=== PATIENT | male | born 1960 | race Caucasian/White ===

== ENCOUNTER 2018-05-08 12:55 | Day surgery (SDC) | payer OTHER ==
[~2018-05-08] VITALS: Ht 182.9 cm; Wt 106.3 kg
[~2018-05-08 12:55] MED LIST: ALLO300 PO; AMLO5 PO; ASPI325 PO; ENAL10 PO; FISH OIL 1,0001 EACH PO; FISH1000 PO; GEMF600 PO; SIMV40 PO
== END 2018-05-08 15:22 | disposition home or self-care (01) ==
LOC: ORSCSDS 12:55
PROVIDERS: Internal Medicine Gastroenterology
PROC: 0DBM8ZX Excision of Descending Colon, Via Natural or Artificial Opening Endoscopic, Diagnostic (ICD-10-PCS; principal; 2018-05-08 14:15)
PROC: 0DBL8ZX Excision of Transverse Colon, Via Natural or Artificial Opening Endoscopic, Diagnostic (ICD-10-PCS; principal; 2018-05-08 14:15)
DX: Z86.010 Personal history of colon polyps (principal); D12.3 Benign neoplasm of transverse colon; D12.4 Benign neoplasm of descending colon; K57.30 Diverticulosis of large intestine without perforation or abscess without bleeding; I10 Essential (primary) hypertension; E78.1 Pure hyperglyceridemia; E78.5 Hyperlipidemia, unspecified; E88.81 Metabolic syndrome and other insulin resistance; F17.210 Nicotine dependence, cigarettes, uncomplicated; Z79.899 Other long term (current) drug therapy; Z79.82 Long term (current) use of aspirin; K64.8 Other hemorrhoids
CPT/HCPCS: 88305; J2250; J7120

== ENCOUNTER → 2019-01-23 | Outpatient (CLI) | payer OTHER | LOC: LAB SHORT 10:26 → LAB EV 10:26 | DX: S81.801A Unspecified open wound, right lower leg, initial encounter (principal) | CPT/HCPCS: 87070; 87205 ==

== ENCOUNTER 2021-05-11 08:26 | Day surgery (SDC) | payer OTHER ==
[~2021-05-11] VITALS: Ht 182.9 cm; Wt 98.2 kg
[~2021-05-11 08:26] MED LIST changes: +CENTRUM SILVER1 EAC2 PO; +CO Q10100 MG PO; +Enalapril Malea20 MG PO; +ROSU5 PO; +TERB250 PO; +Tobramycin-Dexam5 ML BOTHEYES
== END 2021-05-11 10:13 | disposition home or self-care (01) ==
LOC: ORSCSDS 08:26
PROVIDERS: Internal Medicine Gastroenterology
PROC: 0DBH8ZX Excision of Cecum, Via Natural or Artificial Opening Endoscopic, Diagnostic (ICD-10-PCS; principal; 2021-05-11 09:45)
PROC: 0DBL8ZX Excision of Transverse Colon, Via Natural or Artificial Opening Endoscopic, Diagnostic (ICD-10-PCS; principal; 2021-05-11 09:45)
DX: Z12.11 Encounter for screening for malignant neoplasm of colon (principal); Z86.010 Personal history of colon polyps; D12.0 Benign neoplasm of cecum; D12.3 Benign neoplasm of transverse colon; K57.30 Diverticulosis of large intestine without perforation or abscess without bleeding; E78.5 Hyperlipidemia, unspecified; K64.8 Other hemorrhoids; Z79.82 Long term (current) use of aspirin; Z79.899 Other long term (current) drug therapy
CPT/HCPCS: 88305; J2704; J7120

== ENCOUNTER 2024-01-23 12:10 | Inpatient (IN) | payer OTHER, MEDICARE ==
[~2024-01-23] VITALS: Ht 180.3 cm; Wt 99.8 kg
[~2024-01-23 12:10] MED LIST changes: +ALBU90OI INH; +ALDACTONE100 MG PO; +ALLO100 PO; -ALLO300 PO; +AMOCLA875 PO; +AZIT250 PO; +BUME2 PO; +CHROMIUM400 MCG PO; +DILT60 PO; +ELIQUIS5 M2 PO; +FOLI1 PO; +FURO20 PO; +METO50ER PO; +MIDO5 PO; +POTASSIUM CITR10 ME2 PO; +SODBIC650 PO; +VANCOCIN HCL125 MG PO; +VISBIOME 112.51 EACH PO
[2024-01-23 13:02] LABS: BASOPHILS ABSOLUTE AUTO 0.04 K/mm3 (0.00-0.23); BASOPHILS PERCENT AUTO 0 % (0-2); EOSINOPHILS ABSOLUTE AUTO 0.06 K/mm3 (0.00-0.68); EOSINOPHILS PERCENT AUTO 1 % (0-6); Hematocrit 36.9 % (37.0-53.0); Hemoglobin 12.9 g/dL (13.5-17.5); IMMATURE GRAN ABSOLUTE AUTO 0.14 K/mm3 (0.00-0.10); IMMATURE GRAN PERCENT AUTO 1 % (0-1); LYMPHOCYTES ABSOLUTE AUTO 1.59 K/mm3 (0.84-5.20); LYMPHOCYTES PERCENT AUTO 12 % (21-46); MONOCYTES ABSOLUTE AUTO 0.79 K/mm3 (0.16-1.47); MONOCYTES PERCENT AUTO 6 % (4-13); Mean Corpuscular HGB 33.9 pg (26.0-34.0); Mean Corpuscular Volume 97 fL (80-100); NEUTROPHILS ABSOLUTE AUTO 10.51 K/mm3 (1.96-9.15); NEUTROPHILS PERCENT AUTO 80 % (41-73); NRBC ABSOLUTE 0.02 K/mm3 (0.00-0.02); NRBC Auto 0.2 /100 WBC (0.0-0.2); Platelet Count 343 K/mm3 (150-400); RDW Coefficient Variation 14.6 % (11.7-14.2); RDW Standard Deviation 52.2 fL (35.1-46.3); White Blood Cell Count 13.13 K/mm3 (4.00-11.30)
[2024-01-23 13:45] LABS: Albumin, Blood 2.1 g/dL (3.4-5.0); Albumin/Globulin Ratio 0.7 (0.8-1.8); Bilirubin, Total 0.8 mg/dL (0.1-1.0); Bun/Creatinine Ratio 24.1 (12.0-20.0); Calcium, Blood 9.7 mg/dL (8.5-10.1); Creatinine, Blood 3.57 mg/dL (0.60-1.20); Globulin, Blood 3.1 g/dL (2.2-4.0); Potassium, Blood 5.6 mmol/L (3.5-5.5); Total Protein, Blood 5.2 g/dL (6.4-8.2)
[2024-01-23] MEDS ORDERED: Sodium Zirconium Cyclosilicate 10 GM Packet PO ONE ×2 (14:25→21:25)
[2024-01-23 16:49] LABS: Base Excess Venous -6.4 mmol/L; Bicarbonate Venous 19.5 mmol/L (24.0-30.0); International Normalized Ratio 1.22; PCO2 Venous 37.5 mmHg (38-42); Prothrombin Time Results 12.9 Sec (9.7-11.5); pH Blood Venous 7.33 (7.34-7.37)
[2024-01-23] MEDS ORDERED: OxyCODONE HCL 5 MG TAB PO PRN (16:55)
[2024-01-23 17:21] VITALS: BP 112/67
[2024-01-23] MEDS ORDERED: Albuterol HFA200 ACT/6.7 GM INH INH PRN (19:40)
[2024-01-23 20:37] LABS: Albumin, Blood 2.1 g/dL (3.4-5.0); Anion Gap 18 mmol/L (3-11); Blood Urea Nitrogen 91 mg/dL (8-24); Bun/Creatinine Ratio 23.9 (12.0-20.0); CO2, Blood 18 mmol/L (21-32); Calcium, Blood 9.5 mg/dL (8.5-10.1); Chloride, Blood 93 mmol/L (98-108); Creatinine, Blood 3.81 mg/dL (0.60-1.20); Glomerular Filtration Rate 17 (60-); Glucose, Blood 223 mg/dL (70-99); Phosphorus, Blood 6.4 mg/dL (2.5-4.9); Potassium, Blood 5.4 mmol/L (3.5-5.5); Sodium, Blood 124 mmol/L (136-145)
[2024-01-23 20:40] VITALS: BP 103/71
[2024-01-23] MEDS ORDERED: Polyethylene Glycol 3350 17 gm PO SCH (21:00)
[2024-01-23] MEDS ORDERED: Lactobacil 2-S.Thermo-Bifido 1 1 Cap PO SCH (21:00)
[2024-01-23] MEDS ORDERED: Miconazole Nitrate 2% 85 GM PWD TOP SCH (21:00)
--- NOTE | 2024-01-24 04:46 | NUR ---
SHIFT SUMMARY ADMITTED FOR ABDOMINAL ASCITES. DNR CODE. PLAN IS FOR PARACENTESIS WHEN HE IS OFF OF ELIQUIS FOR 48 HOURS. IV ALBUMIN IS SCEDULED. HE IS A&O X3, ON RA, REGULAR DIET. RENAL CONSULT IS DR. MONTERO. HE DOES LIVE WITH HIS SPOUSE.
[2024-01-24 04:53] VITALS: BP 93/70
[2024-01-24 05:06] LABS: BASOPHILS ABSOLUTE AUTO 0.03 K/mm3 (0.00-0.23); BASOPHILS PERCENT AUTO 0 % (0-2); EOSINOPHILS ABSOLUTE AUTO 0.11 K/mm3 (0.00-0.68); EOSINOPHILS PERCENT AUTO 1 % (0-6); Hematocrit 34.3 % (37.0-53.0); Hemoglobin 11.9 g/dL (13.5-17.5); IMMATURE GRAN ABSOLUTE AUTO 0.15 K/mm3 (0.00-0.10); IMMATURE GRAN PERCENT AUTO 1 % (0-1); LYMPHOCYTES ABSOLUTE AUTO 1.86 K/mm3 (0.84-5.20); LYMPHOCYTES PERCENT AUTO 14 % (21-46); MONOCYTES ABSOLUTE AUTO 1.07 K/mm3 (0.16-1.47); MONOCYTES PERCENT AUTO 8 % (4-13); Mean Corpuscular HGB 33.2 pg (26.0-34.0); Mean Corpuscular HGB Conc 34.7 g/dL (31.5-36.5); Mean Corpuscular Volume 96 fL (80-100); Mean Platelet Volume 10.1 fL (9.1-12.4); NEUTROPHILS ABSOLUTE AUTO 9.71 K/mm3 (1.96-9.15); NEUTROPHILS PERCENT AUTO 75 % (41-73); NRBC ABSOLUTE 0.03 K/mm3 (0.00-0.02); NRBC Auto 0.2 /100 WBC (0.0-0.2); Platelet Count 333 K/mm3 (150-400); RDW Coefficient Variation 14.6 % (11.7-14.2); Red Blood Cell Count 3.58 M/mm3 (4.30-5.90); White Blood Cell Count 12.93 K/mm3 (4.00-11.30)
[2024-01-24 05:19] LABS: International Normalized Ratio 1.17; Prothrombin Time Results 12.4 Sec (9.7-11.5)
[2024-01-24 06:01] LABS: Albumin, Blood 2.1 g/dL (3.4-5.0); Albumin/Globulin Ratio 0.7 (0.8-1.8); Bilirubin, Total 0.8 mg/dL (0.1-1.0); Bun/Creatinine Ratio 22.8 (12.0-20.0); Calcium, Blood 9.5 mg/dL (8.5-10.1); Creatinine, Blood 4.08 mg/dL (0.60-1.20); Globulin, Blood 3.1 g/dL (2.2-4.0); Phosphorus, Blood 6.9 mg/dL (2.5-4.9); Potassium, Blood 5.9 mmol/L (3.5-5.5); Thyroid Stimulating Hormone 1.66 uIU/mL (0.360-4.800); Total Protein, Blood 5.2 g/dL (6.4-8.2); Uric Acid, Blood 6.8 mg/dL (3.5-7.2)
[2024-01-24] MEDS ORDERED: dilTIAZem HCL 60 MG TAB PO SCH (07:30)
[2024-01-24 07:55] VITALS: BP 108/76
[2024-01-24] MEDS ORDERED: Midodrine 5 MG Tab PO SCH (09:00)
[2024-01-24] MEDS ORDERED: Bumetanide 0.25 MG/ML 10ML Vial IV SCH (09:00)
[2024-01-24] MEDS ORDERED: Sodium Bicarbonate 650 MG Tab PO SCH (09:00)
[2024-01-24] MEDS ORDERED: Allopurinol 100 MG Tab PO SCH (09:00)
[2024-01-24] MEDS ORDERED: Sodium Zirconium Cyclosilicate 10 GM Packet PO SCH ×2 (09:00)
[2024-01-24] MEDS ORDERED: Folic Acid 1 MG TAB PO SCH (09:00)
[2024-01-24] MEDS ORDERED: Albumin Human 50 ML IV SCH (09:00)
[2024-01-24 11:56] LABS: Source, Urine Foley catheter
[2024-01-24 12:01] LABS: Appearance, Urine Cloudy (Clear); Bilirubin, Urine Neg (Neg); Blood, Urine 5+ (Neg); Color, Urine Amber (P-Yellow); Glucose Qualitative, Urine Neg (Neg); Ketones, Urine Neg (Neg); Leukocyte Esterase, Urine 3+ (Neg); Nitrite, Urine Neg (Neg); Protein, Urine 2+ (Neg); Urobilinogen, Urine NORM (Normal)
[2024-01-24 12:13] LABS: Bacteria Few /hpf; Red Blood Cells, Urine TNTC /hpf (0-2); Squamous Epithelial Cells Rare /hpf (Few); White Blood Cells, Urine 25-50 /hpf (0-5)
[2024-01-24 15:44] VITALS: BP 111/76
--- NOTE | 2024-01-24 16:09 | NUR ---
Upon receiving a referral for spiritual care, I visited the patient. He talks about his alcohol addiction and the his plan to live alcohol free and he hopes that he is not to late. He talks about his family and that they are his inspiration and his strength. He also finds peace and full on his four crowder [place]. He has no oriental orthodox preference but his "not against any of it." We talk about and dying and his desire to stick around for a while longer. I provide therapeutic listening, gentle travel counselor automobile club and a calming presence. Patient responded well and showed signs of an elevated outlook.
[2024-01-24] MEDS ORDERED: ROSU5 PO (16:11)
--- NOTE | 2024-01-24 18:33 | NUR ---
OREINTED TO ALL, PAZ, WAKES EASILY, MAKES NEEDS KNOWN, WU 16 COUDE PLACED FOR URINE RETENTION PER DR ZULUAGA, URINE YELLOW/TNAG, NPO AT MIDNIGHT FOR PLEUROVAC PLACEMENT, MEDICATED FOR PAIN WITH OXYCODONE, MICONAZOLE POWDER TO SKIN FOLDS. KIDNEY VALUES WORSENING, DR MONTERO CONSULTING WITH PATIENT, PALLIATIVE/COMFORT CARE TO TAKE OVER ONCE PROCEDURE TOMORROW IS FINISHED, REFUSED NICOTINE REPLACMENT PATCHS/GUM, DAILY SMOKER, NOT IMPULSIVE, REPOSITIONS SELF IN BED, CALL LIGHT WITH IN REACH, WILL RELAY TO PM RN
[2024-01-24 19:57] VITALS: BP 122/87
[2024-01-25 04:13] VITALS: BP 105/65
--- NOTE | 2024-01-25 05:02 | NUR ---
SHIFT SUMMARY. PATIENT IS AOX3. PATIENT ADMITTED WITH ABDOMINAL ASCITIES. PATIENT IS ON RA SATTING >92%. PATIENT IS ABLE TO MAKE HIS NEEDS KNOWN. PATIENT NPO AT MIDNIGHT FOR PROCEDURE TODAY AND RENAL ULTRASOUND. DR. MONTERO IS FEEDER WORKER POWER UNIT OPERATOR FOLLOWING KIDNEY FUNCTION. PER REPORT FROM DAY SHIFT-PALLIATIVE CARE TO COME TALK WITH PATIENT AFTER PROCEDURE ON 01/25/24. PATIENT URINE OUTPUT IS POOR. PATIENT IS COOPERATIVE WITH CARE AND ABLE TO MAKE HIS NEEDS KNOWN. PATIENT C/O PAIN; PAIN ASSESSED AND MEDICATED PER EMAR. PATIENTS BED IS LOCKED IN THE LOWEST POSITION WTIH CALL LIGHT IN REACH. CARE IS ONGOING.
[2024-01-25 05:50] LABS: BASOPHILS ABSOLUTE AUTO 0.03 K/mm3 (0.00-0.23); BASOPHILS PERCENT AUTO 0 % (0-2); EOSINOPHILS ABSOLUTE AUTO 0.12 K/mm3 (0.00-0.68); EOSINOPHILS PERCENT AUTO 1 % (0-6); Hematocrit 31.5 % (37.0-53.0); Hemoglobin 11.2 g/dL (13.5-17.5); IMMATURE GRAN ABSOLUTE AUTO 0.14 K/mm3 (0.00-0.10); IMMATURE GRAN PERCENT AUTO 1 % (0-1); LYMPHOCYTES ABSOLUTE AUTO 1.42 K/mm3 (0.84-5.20); LYMPHOCYTES PERCENT AUTO 8 % (21-46); MONOCYTES ABSOLUTE AUTO 1.55 K/mm3 (0.16-1.47); MONOCYTES PERCENT AUTO 9 % (4-13); Mean Corpuscular HGB 33.6 pg (26.0-34.0); Mean Corpuscular HGB Conc 35.6 g/dL (31.5-36.5); Mean Corpuscular Volume 95 fL (80-100); Mean Platelet Volume 10.4 fL (9.1-12.4); NEUTROPHILS ABSOLUTE AUTO 14.74 K/mm3 (1.96-9.15); NEUTROPHILS PERCENT AUTO 82 % (41-73); NRBC ABSOLUTE 0.02 K/mm3 (0.00-0.02); NRBC Auto 0.1 /100 WBC (0.0-0.2); Platelet Count 314 K/mm3 (150-400); RDW Coefficient Variation 14.7 % (11.7-14.2); RDW Standard Deviation 50.5 fL (35.1-46.3); Red Blood Cell Count 3.33 M/mm3 (4.30-5.90)
[2024-01-25 06:32] LABS: Albumin, Blood 2.3 g/dL (3.4-5.0); Albumin/Globulin Ratio 0.8 (0.8-1.8); Bilirubin, Direct 0.4 mg/dL (0.0-0.3); Bilirubin, Indirect 0.3 mg/dL (0.1-0.7); Bilirubin, Total 0.7 mg/dL (0.1-1.0); Bun/Creatinine Ratio 22.3 (12.0-20.0); Calcium, Blood 9.6 mg/dL (8.5-10.1); Creatinine, Blood 4.58 mg/dL (0.60-1.20); Magnesium, Blood 2.2 mg/dL (1.6-2.4); Phosphorus, Blood 7.5 mg/dL (2.5-4.9); Total Protein, Blood 5.3 g/dL (6.4-8.2)
[2024-01-25 06:40] LABS: Potassium, Blood 6.2 mmol/L (3.5-5.5)
[2024-01-25] MEDS ORDERED: Insulin Regular 100 UNIT/ML 10ML Vial SC ONE (07:10)
[2024-01-25] MEDS ORDERED: Sodium Bicarb 8.4% 1 MEQ/ML 50 ML Vial IV ONE ×2 (07:10→13:30)
[2024-01-25] MEDS ORDERED: Dextrose 50% 50 ML Syringe IV ONE (07:10)
[2024-01-25] MEDS ORDERED: Dextrose 5% 250 ML IV ONE (07:20)
[2024-01-25 08:17] VITALS: BP 101/67
[2024-01-25] MEDS ORDERED: Dextrose 50% 50 ML Vial IV ONE ×2 (08:25→13:30)
[2024-01-25 12:04] VITALS: BP 134/121
[2024-01-25 13:00] LABS: Albumin, Blood 2.7 g/dL (3.4-5.0); Anion Gap 14 mmol/L (3-11); Blood Urea Nitrogen 103 mg/dL (8-24); Bun/Creatinine Ratio 21.6 (12.0-20.0); CO2, Blood 25 mmol/L (21-32); Calcium, Blood 9.7 mg/dL (8.5-10.1); Chloride, Blood 91 mmol/L (98-108); Creatinine, Blood 4.76 mg/dL (0.60-1.20); Glomerular Filtration Rate 13 (60-); Glucose, Blood 134 mg/dL (70-99); Phosphorus, Blood 7.9 mg/dL (2.5-4.9); Potassium, Blood 6.1 mmol/L (3.5-5.5); Sodium, Blood 124 mmol/L (136-145)
[2024-01-25] MEDS ORDERED: Insulin Regular 100 Unit/ML 1ML Dose IV ONE ×2 (13:30→13:45)
[2024-01-25 14:20] VITALS: BP 88/66
[2024-01-25 16:28] VITALS: BP 102/67
--- NOTE | 2024-01-25 17:15 | NUR ---
SUMMARY- PT A/O X3, FORGETFUL, GEN WEAKNESS. CURRTNELY ON BED REST, ROUTINE TURNS. PLAN FOR PLEUR-X DRAIN PLACEMENT TOMORROW 01/25, PT HAS BEEN NPO ALL DAY AWAITING PLACEMENT, BUT ABLE TO EAT DINNER AND MAKE NPO AFTER MN ANTICIPATING DRAIN PLACEMENT. PT'S POTASSIUM HIGH, GIVEN 2 ROUNDS OF D50/INSULIN- CALLED DR MONTERO 171 AND MADE AWARE OF K RESLUTS OF 5.6. ALSO TOLD OF FAMILYS DECISION AGAINST DYALYSIS THUS NO PERMACATH PLACEMENT. PT'S ABD DISCOMFORT/ TIGHTNESS CONTROLLED WITH OXY 5MG PRN APPROX Q 4-6. WU PUT OUT 300ML ARNOLDO THIS 12HR SHIFT. GROIN REDNESS/BUTTOCK HAS RED RESOLVING RASH, CLEANSED THOROUGHLY AND APPLIED ZINC CREAM AND MICONAZOLE. WILL REPORT TO NESS OLMEDO
[2024-01-25 20:03] VITALS: BP 99/61
[2024-01-26 02:32] VITALS: BP 101/67
[2024-01-26 05:11] LABS: Hematocrit 31.9 % (37.0-53.0); Hemoglobin 10.9 g/dL (13.5-17.5)
[2024-01-26 05:38] LABS: Albumin, Blood 2.4 g/dL (3.4-5.0); Anion Gap 15 mmol/L (3-11); Blood Urea Nitrogen 115 mg/dL (8-24); Bun/Creatinine Ratio 24.2 (12.0-20.0); CO2, Blood 25 mmol/L (21-32); Calcium, Blood 9.2 mg/dL (8.5-10.1); Chloride, Blood 92 mmol/L (98-108); Creatinine, Blood 4.75 mg/dL (0.60-1.20); Glomerular Filtration Rate 13 (60-); Glucose, Blood 147 mg/dL (70-99); Magnesium, Blood 2.2 mg/dL (1.6-2.4); Phosphorus, Blood 7.7 mg/dL (2.5-4.9); Potassium, Blood 5.6 mmol/L (3.5-5.5); Sodium, Blood 126 mmol/L (136-145)
--- NOTE | 2024-01-26 07:44 | NUR ---
STRUCTURAL SHOP HELPER SUMMARY PT A&O X 3, MILDLY CONFUSED AND FORGETFUL. PT IN BED THROUGH THE NIGHT. PT C/O ABDOMINAL PAIN ONLY WHEN ASKED. HE WAS NOTED TO BE MOANING IN HIS SLEEP. PT GIVEN PAIN MEDS WITH GOOD RELIEF. PT NPO AFTERT MIDNIGHT FOR PROCEDURE IN AM. ABDOMEN GROSSLY DISTENDED, TENDER UPON PALPATION. PT SON AND HIS AT BEDSIDE THIS EVENING WITH MULTIPLE CONCERNS AND QUESTIONS REGARDING HIS CARE AND TREATMENT. THEY WERE GIVEN ANSWERS AND SEEMED SATISFIED WITH INFORMATION UPON LEAVING. BED BATH AND PENIS/GROIN/CATH CARE COMPLETED THIS AM. PT WAS REPOSITIONED Q 2 HOURS AND PRN. 01/26/24 KEESHA PRADO RN
[2024-01-26 07:52] VITALS: BP 101/69
[2024-01-26] MEDS ORDERED: Bumetanide 0.25 MG/ML 4ML ViaL IV SCH (09:00)
[2024-01-26] MEDS ORDERED: Albumin (Human) 25gm/100ml 100 ML IV SCH (09:00)
[2024-01-26 12:57] VITALS: BP 99/63
--- NOTE | 2024-01-26 13:33 | NUR ---
RECEIVED CALL FROM IR STATING THAT DR. TALBOT WOULD BE UNABLE TO DO THE PROCEDURE TODAY TO PLACE THE PLEUREX DRAIN. ADVISED THAT DR. ZULUAGA CONTACT GENERAL SURGERY FOR THEM TO PLACE. DR. ZULUAGA NOTIFIED.
[2024-01-26 16:10] LABS: HEPATITIS B SURFACE ANTIBODY <3.10 IU/L
--- NOTE | 2024-01-26 17:35 | NUR ---
SHIFT SUMMARY: NO EVENTS OR CHANGES WITH THE PATIENT THROUGHOUT THE SHIFT. HE HAS REMAINED SOMNOLENT MOST OF THE DAY, BUT AWAKENS TO VERBAL STIMULI. HE MOANS OUT LOUD WHILE HE SLEEPS. PATIENT WILL NOT VOICE PAIN, HAVE BEEN GIVING PRN PAIN MEDICATION TO PATIENT WHEN PAIN/DISCOMFORT IS ACCESSED. THE PLEUREX DRAIN UNFORTUNATELY WAS NOT PLACED TODAY AND THE PLAN IS TO HAVE IT PLACED TOMORROW 01/27/24. PATIENT WILL BE NPO AT 0000. PATIENT AND PATIENT FAMILY NOTIFIED. PATIENT TOLERATING IV AND ORAL INTAKE. HE HAS BEEN IN BED THROUGHOUT THE SHIFT AND BEEN GETTING REPOSITIONED Q2 HRS. HE IS IN BED, CALL LIGHT WITHIN REACH, SON AT BED SIDE, NO SIGNS OR SYMPTOMS OF DISTRESS. PLAN OF CARE ONGOING.
[2024-01-26 17:42] LABS: HEPATITIS A ANTIBODY, IGM Negative (Negative); HEPATITIS B CORE ANTIBODY, IGM Negative (Negative); HEPATITIS B SURFACE ANTIGEN Negative (Negative); HEPATITIS C AB CIA INTERP Negative (Negative); HEPATITIS C ANTIBODY CIA INDEX <0.02 IV
[2024-01-26 19:26] VITALS: BP 98/59
[2024-01-27] VITALS (17 sets, daily range): BP systolic 90–145; BP diastolic 55–127
--- NOTE | 2024-01-27 05:43 | NUR ---
SHIFT SUMMARY PATIENT IS ALERT AND ORIENTED X3. PATIENT HAS HAD NO ACUTE EVENTS THIS SHIFT. VITAL SIGNS REVIEWED. PATIENT HAS COMPLAINED OF PAIN THIS SHIFT AND MEDICATED PER EMAR. PATIENT HAS NOT COMPLAINED OF SOB, NAUSEA, OR VOMITTING THIS SHIFT. PATIENT HAS BEEN NPO SINCE MIDNIGHT FOR PROCEDURE PLANNED TODAY. BED IN LOCKED AND LOWEST POSITION. CALL LIGHT IN PLACE. WILL MONITOR UNTIL SHIFT CHANGE.
[2024-01-27 06:06] LABS: Hematocrit 29.7 % (37.0-53.0); Hemoglobin 10.4 g/dL (13.5-17.5)
[2024-01-27 06:25] LABS: Albumin, Blood 2.8 g/dL (3.4-5.0); Anion Gap 14 mmol/L (3-11); Blood Urea Nitrogen 115 mg/dL (8-24); Bun/Creatinine Ratio 27.6 (12.0-20.0); CO2, Blood 26 mmol/L (21-32); Chloride, Blood 93 mmol/L (98-108); Creatinine, Blood 4.16 mg/dL (0.60-1.20); Glomerular Filtration Rate 15 (60-); Glucose, Blood 132 mg/dL (70-99); Magnesium, Blood 2.2 mg/dL (1.6-2.4); Phosphorus, Blood 6.5 mg/dL (2.5-4.9); Potassium, Blood 4.7 mmol/L (3.5-5.5); Sodium, Blood 128 mmol/L (136-145)
[2024-01-27] MEDS ORDERED: Sodium Bicarbonate 650 MG Tab PO SCH (09:00)
[2024-01-27] MEDS ORDERED: Sodium Zirconium Cyclosilicate 10 GM Packet PO SCH (09:00)
[2024-01-27] MEDS ORDERED: LOKELMA10 GM PO (15:55)
[2024-01-27] MEDS ORDERED: Lactated Ringer's 1,000 ML IV SCH (16:05)
[2024-01-27] MEDS ORDERED: NS 1,000 ML IV SCH (16:35)
[2024-01-27] MEDS ORDERED: CeFAZolin Sodium 2,000 MG in NS 100 ML IV SCH (16:55)
--- NOTE | 2024-01-27 17:00 | NUR ---
PT TO DAYSURG. SOFT B/P, BOLUS 250ML NS. O2 SAT 80"S ON 2L O2 VIA NC. VSS. IMPROVED SEE EMAR. HOB UP. PROVIDER AWARE. Pre-Op teaching done. Pt verbalizes understanding. RESTING EYES CLOSED.
--- NOTE | 2024-01-27 17:23 | NUR ---
SHIFT SUMMARY: NO EVENTS OR CHANGES WITH THE PATIENT THROUGHOUT THE SHIFT. HE HAS BEEN NPO SINCE 0000. DAY SURGERY ARRIVED AROUND 1600-30 TO TAKE PATIENT DOWN FOR HIS PROCEDURE TO GET HIS PLEUX DRAIN PLACED. THE PLAN IS FOR THE PATIENT TO DISCHARGE POST PROCEDURE. [facility] WILL NEED TO BE CONTACTED FOR MEDICAL TRANSPORT TO TAKE PATIENT HOME. PLEUX DRAIN HOME KIT SEND WITH PATIENT'S SIGNIFICANT OTHER ONESIMO. FAMILY NOTIFIED OF PATIENT BEING TAKEN DOWN FOR HIS PROCEDURE; HE IS CURRENTLY STILL IN DAY SURGERY. WILL BE PASSING REPORT TO KEN OLMEDO TO ASSUME CARE FOR THE REMAINDER OF THE SHIFT.
[2024-01-27] MEDS ORDERED: Midazolam HCl 1MG / ML 2ML Vial ONE (18:04)
[2024-01-27] MEDS ORDERED: FentaNYL Citrate 50 MCG/ML 2 ML Injection ONE (18:04)
--- NOTE | 2024-01-27 18:28 | NUR ---
01/27/24 182 Hal Siegel AT 1819 30ML 1% L[facility]
[2024-01-27 18:58] LABS: CORTISOL,U FREE - RATIO TO CRT 23.78 ug/g CRT; CREATININE,URINE - PER VOLUME 148 mg/dL; HOURS COLLECTED Not Provided hr; TOTAL VOLUME Not Provided mL
--- NOTE | 2024-01-27 19:04 | NUR ---
WHEN PT CAME TO PACU WE DRAINED WU BAG OF 600 ML ARNOLDO URINE.
--- NOTE | 2024-01-27 23:38 | NUR ---
DISCHARGE SUMMARY PATIENT IS HAS BEEN LETHARGIC BUT ARROUSABLE TO VERBAL STIMULI. PATIENT IS BEING DISCHARGED HOME WITH HOSPICE. PATIENT WAS PICKED UP BY TRANSPORT AT APPROX 2300. PATIENTS FAMILY HAS BEEN UPDATED AND IS AWAITING AT HOME FOR PATIENT. IV REMOVED WNL. WU IN PLACE.
== END 2024-01-27 22:47 | disposition hospice, home (50) | DRG 432 ==
LOC: ER 12:10 → MEDS 12:11
PROVIDERS: Emergency Medicine; Internal Medicine Nephrology; Surgery; ADMIT Family Medicine
PROC: 0W9G30Z Drainage of Peritoneal Cavity with Drainage Device, Percutaneous Approach (ICD-10-PCS; principal; 2024-01-27 17:30)
DX: K70.31 Alcoholic cirrhosis of liver with ascites (principal); K76.7 Hepatorenal syndrome; N18.6 End stage renal disease; N17.9 Acute kidney failure, unspecified; I13.2 Hypertensive heart and chronic kidney disease with heart failure and with stage 5 chronic kidney disease, or end stage renal disease; I50.22 Chronic systolic (congestive) heart failure; N25.81 Secondary hyperparathyroidism of renal origin; E87.1 Hypo-osmolality and hyponatremia; E87.20 Acidosis, unspecified; R57.9 Shock, unspecified; Z66 Do not resuscitate; F10.11 Alcohol abuse, in remission; I48.91 Unspecified atrial fibrillation; F17.210 Nicotine dependence, cigarettes, uncomplicated; N40.0 Benign prostatic hyperplasia without lower urinary tract symptoms; E78.5 Hyperlipidemia, unspecified; I95.9 Hypotension, unspecified; E87.5 Hyperkalemia; M10.9 Gout, unspecified; D63.1 Anemia in chronic kidney disease; E88.09 Other disorders of plasma-protein metabolism, not elsewhere classified; E87.70 Fluid overload, unspecified; R60.0 Localized edema; Z53.9 Procedure and treatment not carried out, unspecified reason; Z79.899 Other long term (current) drug therapy; Z79.01 Long term (current) use of anticoagulants
CPT/HCPCS: 36415; 76770; 80053; 80069; 80074; 81001; 82248; 82530; 82533; 82550; 82803; 83735; 84100; 84132; 84443; 84550; 85014; 85018; 85025; 85610; 87086; 93005; 93010; 93975; 94640; 94664; 94760; 96365; 96375; 99285-25; A9270; C1729; G0378; J0690; J1815; J2250; J3010; J7799; P9047